=== PATIENT | male | born 1940 | race Caucasian/White ===

== ENCOUNTER 2016-06-20 18:41 | Inpatient (IN) ==
[2016-06-20 20:08] LABS: Basophils # (Auto) 0 K/mcL (0.0-0.3); Basophils % (Auto) 0.3 % (0.0-2.0); Eosinophils # (Auto) 0.1 K/mcL (0.0-0.7); Eosinophils % (Auto) 1.3 % (0.0-7.0); Lymphocytes % (Auto) 10.4 % (15.5-49.0); Mean Cell Volume 91.1 fL (80.0-100.0); Mean Corpuscular HGB Conc 33.3 g/dL (31.0-36.0); Mean Corpuscular Hemoglobin 30.3 pg (26.0-34.0); Monocytes # (Auto) 0.8 K/mcL (0.1-0.9); Platelet Count 210 K/mcL (140-440); RBC 5.28 M/mcL (4.50-5.90); Red Cell Distribution Width 13.5 % (11.5-14.5)
[2016-06-20 20:15] LABS: ALT/SGPT 19 U/l (0-40); Albumin 3.6 gm/dL (3.2-5.2); Albumin/Globulin Ratio 1.2 (1.0-2.3); Alkaline Phosphatase 62 U/L (39-117); Blood Urea Nitrogen 16 mg/dl (8-23)
[2016-06-20] MEDS ORDERED: KETOROLAC 30 MG/ML VIAL IV ONE (20:31)
[2016-06-20] MEDS ORDERED: 0.9 % SODIUM CHLORIDE 1,000 ML IV ONE (20:31)
[2016-06-20] MEDS ORDERED: PROCHLORPERAZINE 10 MG/2 ML VIAL IV ONE (20:31)
--- NOTE | 2016-06-20 20:48 | Emergency Department Note ---
General Adult HPI - General Chief complaint: Fever Stated complaint: Fever Time Seen by Provider: 06/20/16 18:53 Source: patient Mode of arrival: ambulatory Limitations: no limitations - History of Present Illness HPI Narrative: Patient presents, initial injury on the . His multiple documentations should been reviewed including 2 head CTs and MRI. Patient was evaluated by Dr. Persaud, additional laboratory testing yesterday. Also documentation of consult with neurosurgery. History presents, fever of 102 at home. Persistent and increasing malaise, decreasing appetite, nausea without emesis. Persistent productive cough although present at baseline. Headache with photophobia, persistent, felt mostly behind the eyes and some posterior right. Using Tylenol home, minimal benefit for headache. Minimal benefit for fever. Some chills but not to Reiger's. General myalgias as well. Patient is continued antibiotic as prescribed, Augmentin 875. - Related Data Home Medications Medication Instructions Recorded Confirmed Aspirin [Adult Low Dose Aspirin EC] 81 mg PO DAILY 06/13/16 06/14/16 Cartia Xt 1 tab PO DAILY 06/13/16 06/14/16 Doxazosin [Cardura] 2 mg PO DAILY 06/13/16 06/14/16 Irbesartan/Hydrochlorothiazide 1 each PO DAILY 06/13/16 06/14/16 [Irbesartan-Hctz 300-12.5 mg Tb] Simvastatin [Zocor] 2.5 mg PO HS 06/13/16 06/14/16 Testosterone 200 gm MC DAILY 06/13/16 06/14/16 Previous Rx's Medication Instructions Recorded Amoxicillin/Potassium Clav 875 mg PO Q12H #20 tablet 06/14/16 [Augmentin] Ondansetron HCl [Zofran ODT] 4 mg SL Q4-6HP PRN #14 tablet 06/19/16 Cefuroxime [Ceftin] 500 mg PO Q12 #20 tablet 06/20/16 Ibuprofen 800 mg PO TIDP PRN #30 tablet 06/20/16 oxyCODONE/APAP [Percocet 5-325 mg] 1 - 2 tab PO Q4H PRN #30 tablet 06/20/16 Allergies Allergy/AdvReac Type Severity Reaction Status Date / Time codeine AdvReac Headache Verified 06/20/16 18:45 Review of Systems All systems ED: reviewed and negative except as stated. Constitutional: Reports: fever, chills, weakness Eyes: Reports: eye pain, vision change Cardiovascular: Denies: chest pain, palpitations, dyspnea on exertion Respiratory: Reports: cough. Denies: dyspnea Gastrointestinal: Reports: nausea. Denies: abdominal pain, vomiting Past Medical History - Past Medical History Attestation: Yes: The following information was validated with the patient. Medical history: Reports: hypertension Surgical history ED: Reports: other (left arm amputation, right hand finger amputation TURP) Family history: Reports: no significant family history - Social History smoking status: Never smoker Alcohol use: Reports: Occasionally Drug use: Reports: none Physical Exam - General Limitations: no limitations General appearance: alert, in distress, other (rubrous face) - Head Head exam: other (resolving periorbital ecchymosis) - Eye Eye exam: Present: normal appearance - ENT ENT exam: normal exam, TM's normal bilaterally - Neck Neck exam: Present: normal inspection, full ROM. Absent: meningismus, lymphadenopathy - Chest Chest inspection: Present: normal inspection - Respiratory Respiratory exam: Present: respiratory distress, other (course breath sounds, nearly productive cough) - Cardiovascular Cardiovascular exam: Present: regular rate, normal rhythm. Absent: systolic murmur - Abdominal Exam Abdominal exam: Present: soft. Absent: tenderness - Extremities Exam Extremities exam: Present: normal inspection. Absent: pedal edema - Back Exam Back exam: Present: normal inspection - Neurological Exam Neurological exam: Present: alert, oriented X3 - Psychiatric Psychiatric exam: Present: anxious - Skin Skin exam: Present: warm, dry. Absent: rash Course - Reevaluation(s) Reevaluation #1: case discussed with Dr. Anguiano, neurosurgeon at [facility]. Did not feel fractures were likely to be high risk for infection intracranially. Stable and resolving bleeding pattern No clear reason for fever. No danger with LP is considered Time: 19:30 Reevaluation #2: LP completed; waiting results; Rocephin ordered atient's pain much improved with Toradol Time: 22:37 Vital Signs Temperature 100.2 F H 06/20/16 18:42 Pulse Rate 73 06/20/16 18:42 Respiratory Rate 20 06/20/16 18:42 Blood Pressure 165/87 06/20/16 18:42 Pulse Oximetry (%) 96 06/20/16 18:42 Temperature 100.2 F H 06/20/16 18:42 Pulse Rate 71 06/20/16 22:45 Respiratory Rate 21 06/20/16 19:16 Blood Pressure 99/41 06/20/16 22:31 Pulse Oximetry (%) 93 06/20/16 22:45 Medical Decision Making - Medical Records Medical records reviewed: Yes I reviewed the patient's medical records. - Lab Data Lab results reviewed: Yes I reviewed the patient's lab results. Result diagrams: 06/20/16 19:15 06/20/16 19:15 Lab Results 06/20/16 06/20/16 06/20/16 Range/Units 19:15 19:15 19:15 WBC 9.5 (4.5-11.0) K/mcL RBC 5.28 (4.50-5.90) M/mcL Hgb 16.0 (13.5-16.5) g/dL Hct 48.1 (41.0-55.0) % MCV 91.1 (80.0-100.0) fL MCH 30.3 (26.0-34.0) pg MCHC 33.3 (31.0-36.0) g/dL RDW 13.5 (11.5-14.5) % Plt Count 210 (140-440) K/mcL MPV 8.2 (7.4-10.4) fL Gran % 80.0 H (38.0-78.0) % Lymph % (Auto) 10.4 L (15.5-49.0) % [place] % (Auto) 8.0 (1.0-12.0) % Eos % (Auto) 1.3 (0.0-7.0) % Baso % (Auto) 0.3 (0.0-2.0) % Gran # 7.6 (1.8-8.0) K/mcL Lymph # 1.0 L (1.5-4.8) K/mcL [place] # 0.8 (0.1-0.9) K/mcL Eos # 0.1 (0.0-0.7) K/mcL Baso # 0 (0.0-0.3) K/mcL PT 13.4 (11.9-14.5) sec INR 1.0 (0.9-1.1) Sodium 132 L (133-145) mmol/L Potassium 3.8 (3.3-5.1) mmol/L Chloride 94 L (96-108) mmol/L Carbon Dioxide 22 (22-30) mmol/L Anion Gap 16.0 (8-16) BUN 16 (8-23) mg/dl Creatinine 1.4 H (0.7-1.2) mg/dl GFR Calculation 48 Glucose 107 H (70-105) mg/dL Calcium 8.4 L (8.6-10.4) mg/dl Total Bilirubin 0.8 (0.0-1.0) mg/dL AST 17 (0-37) U/l ALT 19 (0-40) U/l Alkaline Phosphatase 62 (39-117) U/L Total Protein 6.5 (5.9-8.4) gm/dL Albumin 3.6 (3.2-5.2) gm/dL Globulin 2.9 (2.2-3.7) gm/dL Albumin/Globulin Ratio 1.2 (1.0-2.3) CSF Source CSF Appearance CSF Color CSF RBC (0-1) /cumm CSF Diff Total Count CSF Total Nucleated Auto (0-5) /cumm CSF Neutrophils (0-6) % CSF Lymphocytes (40-80) % CSF Reactive Lymphs CSF Monocytes (15-45) % CSF Eosinophils % % CSF Basophils CSF Macrophages CSF Plasma Cells CSF Diff Comment CSF Glucose (45-75) mg/dL 06/20/16 Range/Units 21:43 WBC (4.5-11.0) K/mcL RBC (4.50-5.90) M/mcL Hgb (13.5-16.5) g/dL Hct (41.0-55.0) % MCV (80.0-100.0) fL MCH (26.0-34.0) pg MCHC (31.0-36.0) g/dL RDW (11.5-14.5) % Plt Count (140-440) K/mcL MPV (7.4-10.4) fL Gran % (38.0-78.0) % Lymph % (Auto) (15.5-49.0) % [place] % (Auto) (1.0-12.0) % Eos % (Auto) (0.0-7.0) % Baso % (Auto) (0.0-2.0) % Gran # (1.8-8.0) K/mcL Lymph # (1.5-4.8) K/mcL [place] # (0.1-0.9) K/mcL Eos # (0.0-0.7) K/mcL Baso # (0.0-0.3) K/mcL PT (11.9-14.5) sec INR (0.9-1.1) Sodium (133-145) mmol/L Potassium (3.3-5.1) mmol/L Chloride (96-108) mmol/L Carbon Dioxide (22-30) mmol/L Anion Gap (8-16) BUN (8-23) mg/dl Creatinine (0.7-1.2) mg/dl GFR Calculation Glucose (70-105) mg/dL Calcium (8.6-10.4) mg/dl Total Bilirubin (0.0-1.0) mg/dL AST (0-37) U/l ALT (0-40) U/l Alkaline Phosphatase (39-117) U/L Total Protein (5.9-8.4) gm/dL Albumin (3.2-5.2) gm/dL Globulin (2.2-3.7) gm/dL Albumin/Globulin Ratio (1.0-2.3) CSF Source Tube #4 CSF Appearance Cloudy CSF Color Xanthochromic/orange [place] [address] H (0-1) /cumm CSF Diff Total Count 100 CSF Total Nucleated Auto 224 H (0-5) /cumm CSF Neutrophils 74 H (0-6) % CSF Lymphocytes 8 L (40-80) % CSF Reactive Lymphs Not Reportable CSF Monocytes 17 (15-45) % CSF Eosinophils % 1 % CSF Basophils Not Reportable CSF Macrophages Not Reportable CSF Plasma Cells Not Reportable CSF Diff Comment Not Reportable CSF Glucose 45 (45-75) mg/dL - Radiology Data Radiology results reviewed: Yes I reviewed the patient's radiology results. no infiltrate on chest x-ray Disposition Clinical Impression: Fever and chills, CSF abnormal Mastoid fracture Qualifiers: Encounter type: subsequent encounter Summary: no other sources of infection identified. Discussed case with Dr. Anguiano, neurosurgery. Change in antibiotic coverage for greater CSF penetration concern given "PMNs in the CSF; oth blood and CSF cultures pending Dr. Reich contacted, willing for admit Disposition: Xfer As Inpt ([facility]) Condition: Fair Additional Instructions: see Dr. Mak on Thursday if possible Prescriptions: Cefuroxime [Ceftin] 500 mg PO Q12 #20 tablet Ibuprofen 800 mg PO TIDP PRN #30 tablet PRN Reason: pain, fever, headache oxyCODONE/APAP [Percocet 5-325 mg] 1 - 2 tab PO Q4H PRN #30 tablet PRN Reason: Pain Referrals: Woody Mak MD [Primary Care Provider] -
--- NOTE | 2016-06-20 21:42 | Procedure Note ---
Procedures - Lumbar Puncture Consent obtained: verbal consent, written consent Time out performed: Yes Patient position: upright Skin prep: Povidone-Iodine 1% Local anesthetic used: Lidocaine 1% Amount of anesthesia used (mLs): 5 Spinal needle gauge: 22G Interspace used: L3-L4 Fluid initially obtained: cloudy, bloody Complications: none Additional comments: with patient in sitting position LP performed x 2 medial attempts and 1 paramedian attempt. pt tolerated procedure well. no complicaitons noted. pt CSF bloody and cloudy without clearing.
[2016-06-20] MEDS ORDERED: cefTRIAXone 2 GM in DEXTROSE 5% IN WATER 50 ML IV ONE (21:55)
[2016-06-20] MEDS ORDERED: cefTRIAXone 2 GM VIAL ONE (22:05)
[2016-06-20 22:54] LABS: Appearance,CSF CLOUDY; Nucleated Cells,CSF 224 /cumm (0-5); Red Blood Cell,CSF 11710 /cumm (0-1)
[2016-06-20 22:58] LABS: Eosinophils,CSF 1 %; Lymphocytes,CSF 8 % (40-80); Monocytes,CSF 17 % (15-45); Neutrophils,CSF 74 % (0-6); Total Cell Ct,CSF 100
[2016-06-20 22:59] LABS: Glucose,CSF 45 mg/dL (45-75)
[2016-06-20] MEDS ORDERED: VANCOMYCIN 1,000 MG in 0.9 % SODIUM CHLORIDE 250 ML IV ONE (23:07)
[2016-06-20 23:15] LABS: Appearance,CSF CLOUDY; Nucleated Cells,CSF 203 /cumm (0-5); Red Blood Cell,CSF 14698 /cumm (0-1)
[2016-06-21] MEDS ORDERED: DEXAMETHASONE 10 MG/ML VIAL ONE ×2 (00:25→05:16)
[2016-06-21] MEDS: DEXAMETHASONE 10 MG/ML VIAL IV ONE ×2 (00:32→00:35)
--- NOTE | 2016-06-21 00:45 | Internal Med History&Physical ---
Medical - H&P: HPI Patient information: Note initiated : 06/21/16 at 12:41 am Service Date, if different from initiated Date: [] Patient: Cristofer Bowens a 75 y/o M admitted on for Fever. Chief Complaint: [] History of present illness: Mr. Bowens is a 75 year old male with h/o HTN presents to the ER with headache and fever The patient had a fall from a tractor on May, he had SAH and basilar fracture, concussion. He was evaluated here in the ER at that time, Phone consult by neurosurgery was done as per ER notes and plan was to monitor him. the patient had repeat CT heads subsequently as well as MRI head and MRA head. This showed resolving SAH, SDH, and non occulusive thrombus in the right jugular bulb, distal sigmoid sinus. The patient was not anticoagulated in light of his SDH, SAH. He also had a clot in his right middle ear. The patient presents today to the ER with complaints of headache on and off since the fall, but worse since yesterday, fever noted since yesterday. Patient was febrile in the ER, The patient was taking tylenol for his headache with some response. HE was also on anti microbial prophylaxis for meningitis due to his basilar fracture. In the ER given his h/o recent basilar fracture, patient case was discussed with neurosurgery, who reccommended CSF tap which was done today, this was a bloody tap, which showed elevated PMN, protein and borderline low glucose. Given fever, headache and recent basilar fracture, pt was admitted to the floor for management of acute meningitis. Pt is not sure when he last had his ppsv vac, but thinks he has had it in the last 10 yrs, has not had the pcv 13 vac Review of systems: CONSTITUTIONAL: No weight loss, present fever HEENT: Eyes: No visual loss, blurred vision, double vision or yellow sclerae. Ears, Nose, Throat: hearing loss left ear present, no sneezing, congestion, runny nose or sore throat. SKIN: No rash or itching. CARDIOVASCULAR: No chest pain, chest pressure or chest discomfort. No palpitations or edema. RESPIRATORY: No shortness of breath, cough or sputum. GASTROINTESTINAL: No diarrhea or constipation. No abdominal pain or blood in stools No Shirley. had some nausea and vomiting 2 d ays ago. GENITOURINARY: Denies Burning on urination. Blood in urine, or foul smelling urine NEUROLOGICAL: Present headache,No dizziness, syncope, paralysis, tremors, numbness or tingling in the extremities. No change in bowel or bladder control. MUSCULOSKELETAL: No muscle, back pain, joint pain or stiffness. HEMATOLOGIC: No bleeding or bruising. No enlarged nodes PSYCHIATRIC: No depression or anxiety. ENDOCRINOLOGIC: No reports of sweating, cold or heat intolerance. No polyuria or polydipsia. ALLERGIES: No hives, eczema or rhinitis. Skin: No rash, no jaundice, cyanosis or pallor. 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 Family history: reviewed and not pertinent Social history: non smoker no etoh no recreational substance Medical - H&P: Meds Home Medications Medication Instructions Recorded Confirmed Type Aspirin [Adult Low Dose Aspirin EC] 81 mg PO DAILY 06/13/16 06/14/16 History Cartia Xt 1 tab PO DAILY 06/13/16 06/14/16 History Doxazosin [Cardura] 2 mg PO DAILY 06/13/16 06/14/16 History Irbesartan/Hydrochlorothiazide 1 each PO DAILY 06/13/16 06/14/16 History [Irbesartan-Hctz 300-12.5 mg Tb] Simvastatin [Zocor] 2.5 mg PO HS 06/13/16 06/14/16 History Testosterone 200 gm MC DAILY 06/13/16 06/14/16 History Amoxicillin/Potassium Clav 875 mg PO Q12H #20 tablet 06/14/16 Rx [Augmentin] Ondansetron HCl [Zofran ODT] 4 mg SL Q4-6HP PRN #14 tablet 06/19/16 Rx Cefuroxime [Ceftin] 500 mg PO Q12 #20 tablet 06/20/16 Rx Ibuprofen 800 mg PO TIDP PRN #30 tablet 06/20/16 Rx oxyCODONE/APAP [Percocet 5-325 mg] 1 - 2 tab PO Q4H PRN #30 tablet 06/20/16 Rx Allergies Allergy/AdvReac Type Severity Reaction Status Date / Time codeine AdvReac Headache Verified 06/20/16 18:45 Medical - H&P: Exam - Constitutional Vitals: Temp Pulse Resp BP Pulse Ox 99.2 F 59 L 21 112/69 93 06/21/16 00:35 06/21/16 00:03 06/20/16 19:16 06/21/16 00:01 06/21/16 00:03 Exam: GENERAL: The patient is a well-developed, well-nourished in no apparent distress. Is alert and oriented x3. VITAL SIGNS: Reviewed and as noted elsewhere. HEENT: Head appears normocephalic and atraumatic. Extraocular muscles are intact. Pupils are equal, round, and reactive to light. Nares appeared normal. Mouth appears any without lesions. Mucous membranes are moist. left eye has some brusing around the eyes. Right TM has clot behing it. Unable to appreciate any clear discharge from the EAC or nares. NECK: Normal to inspection, Supple, No lymphadenopathy or thyromegaly. LUNGS: Air entry equal on both sides, no wheezing, crackles or rhonchi noted. No accessory muscles of respiration HEART: Regular rate and rhythm normal, S1 and S2 heard, no Gallop, S3 or Rub Noted, No Gross murmur heard. ABDOMEN: Soft, nontender, and nondistended. Positive bowel sounds. No hepatosplenomegaly was noted. EXTREMITIES: No cyanosis, clubbing, rash, lesions or edema. NEUROLOGIC: Cranial nerves II through XII are grossly intact. Motor and Sensory System Grossly Intact PSYCHIATRIC: Normal affect, Normal Mood. Appropriate Behavior. SKIN: No ulceration or wounds noted, No jaundice, No rash noted. Extremities: Absent left upper extremity, oksana lowe extremity with no edema. Medical - H&P: Reslt - Labs CBC & Chem 7: 06/20/16 19:15 06/20/16 19:15 Labs: Short CBC 06/20/16 Range/Units 19:15 WBC 9.5 (4.5-11.0) K/mcL Hgb 16.0 (13.5-16.5) g/dL Hct 48.1 (41.0-55.0) % Plt Count 210 (140-440) K/mcL BMP 06/20/16 19:15 Sodium 132 L Potassium 3.8 Chloride 94 L Carbon Dioxide 22 BUN 16 Creatinine 1.4 H Glucose 107 H Calcium 8.4 L Liver Function 06/20/16 Range/Units 19:15 Total Bilirubin 0.8 (0.0-1.0) mg/dL AST 17 (0-37) U/l ALT 19 (0-40) U/l Alkaline Phosphatase 62 (39-117) U/L Albumin 3.6 (3.2-5.2) gm/dL - Impressions MRI, mra, ct head reviewed csf fluid analsys reveiwed labs reviewed, cxr reviewed. Medical - H&P: A/P - Narrative A/P Narrative: Acute bacterial meningitis: Corrected CSF shows wbc of 203, glucose should be around 60 given his serum glucose of 107, but pt has glucose of 45, his protein is also midly elevated not sure if due to traumatic leak. Will place in droplet precautions IV vancomycin, IV rocephiun, amplicillin and Dexamethasone for now. d/c dexamethasone if no e/o pneumoccous, Give pcv 13 vac this visit. Sent vdrl, cryptococcus, hsv , low suspiction for hsv hence acyclovir not started. Right ear thrombus: seen by ENT non operative management suggested as per patient. SAH/ SDH : Resolved, xanthochromia in the csf due to IC bleed. HTN, monitor bp ,resume home meds if bp increases Renal failure, Creat 1.4, not sure about hsi baseline monitor for now. reassess in AM DVT scd for now Diet Regular Social History - Tobacco smoking status: Never smoker
[2016-06-21] MEDS ORDERED: ONDANSETRON 4 MG/2 ML VIAL IV PRN (01:44)
[2016-06-21] MEDS ORDERED: ACETAMINOPHEN 325 MG TABLET PO PRN (01:44)
[2016-06-21] MEDS ORDERED: MAGNESIUM HYDROXIDE 30 ML ORAL.SUSP PO PRN (01:44)
[2016-06-21] MEDS ORDERED: PNEUMOCCAL 13 VACC (ADULT) 0.5 ML SYRINGE IM ONE (01:44)
[2016-06-21] MEDS ORDERED: NALOXONE HCL 0.4 MG/ML VIAL IV PRN (01:44)
[2016-06-21] MEDS ORDERED: oxyCODONE HCL 5 MG TABLET PO PRN (01:44)
[2016-06-21] MEDS ORDERED: BISACODYL 10 MG SUPP.RECT PR PRN (01:44)
[2016-06-21] MEDS ORDERED: AMPICILLIN SODIUM 2 GM VIAL IV SCH (01:44)
[2016-06-21] MEDS: VANCOMYCIN 1,000 MG in 0.9 % SODIUM CHLORIDE 250 ML IV SCH ×3 (01:48→23:33)
[2016-06-21 05:06] LABS: Basophils # (Auto) 0 K/mcL (0.0-0.3); Basophils % (Auto) 0.4 % (0.0-2.0); Eosinophils # (Auto) 0 K/mcL (0.0-0.7); Eosinophils % (Auto) 0.2 % (0.0-7.0); Granulocytes % (Auto) 91.6 % (38.0-78.0); Lymphocytes # (Auto) 0.6 K/mcL (1.5-4.8); Lymphocytes % (Auto) 6.8 % (15.5-49.0); Mean Cell Volume 92.1 fL (80.0-100.0); Mean Corpuscular HGB Conc 32.7 g/dL (31.0-36.0); Mean Corpuscular Hemoglobin 30.1 pg (26.0-34.0); Monocytes # (Auto) 0.1 K/mcL (0.1-0.9); Platelet Count 201 K/mcL (140-440); RBC 5.06 M/mcL (4.50-5.90); Red Cell Distribution Width 13.5 % (11.5-14.5)
[2016-06-21 05:26] LABS: ALT/SGPT 17 U/l (0-40); Albumin 3.3 gm/dL (3.2-5.2); Albumin/Globulin Ratio 1.2 (1.0-2.3); Alkaline Phosphatase 57 U/L (39-117); Bilirubin,Direct < 0.2 mg/dL (0.0-0.3); Blood Urea Nitrogen 19 mg/dl (8-23); Gamma Glutamyl Transpeptidase 21 U/L (8-61); Magnesium 1.9 mg/dL (1.6-2.5); Uric Acid 8.7 mg/dL (2.5-8.0)
[2016-06-21] MEDS: 0.9 % SODIUM CHLORIDE 10 ML SYRINGE IV SCH ×3 (05:36→20:59)
[2016-06-21] MEDS: DEXAMETHASONE 10 MG/ML VIAL IV SCH ×4 (05:36→23:37)
[2016-06-21 06:44] LABS: Appearance,Urine CLEAR; Bacteria,Urine 0 /hpf (0); Bilirubin,Urine NEG (NEG); Color,Urine YELLOW; Glucose,Urine (UA) NEGATIVE (NEG); Leukocyte Esterase,Urine NEG /uL (NEG); Mucus,Urine FEW /hpf (0); Nitrate,Urine NEG (NEG); Protein,Urine NEG (NEG); Specific Gravity,Urine 1.014 (1.000-1.035); Urine Blood NEG mg/dL (<0.03); Urine RBC 2 /hpf (0-1); Urine Squamous Epithelial Cell 0 /hpf (0-4); Urine WBC < 1 /hpf (0-4); Urobilinogen,Urine NEG (NEG)
--- NOTE | 2016-06-21 08:13 | XRay Report ---
HISTORY: Reason for Exam:cough, fever, malaise FINDINGS: The lungs are clear. The heart, mediastinum, mayra and pleura are normal. A mild levoscoliotic curvature is present in the upper thoracic spine. There has been no significant change since 05/16/13. IMPRESSION: Normal chest. Interpreted and Authenticated by: Hi Chisholm 06/21/16
[2016-06-21] MEDS: AMPICILLIN SODIUM 2 GM in 0.9 % SODIUM CHLORIDE 100 ML IV SCH ×4 (08:25→23:32)
[2016-06-21] MEDS ORDERED: FAMOTIDINE 20 MG TABLET PO SCH (09:00)
[2016-06-21] MEDS: cefTRIAXone 2 GM in DEXTROSE 5% IN WATER 50 ML IV SCH ×2 (09:30→20:57)
[2016-06-21] MEDS: PANTOPRAZOLE 40 MG VIAL IV SCH (15:30)
[2016-06-21] MEDS ORDERED: [UNRECOGNIZED DRUG - OTHER] PO SCH (19:45)
[2016-06-21] MEDS ORDERED: IRBESARTAN PO SCH (19:45)
[2016-06-21] MEDS ORDERED: HYDROCHLOROTHIAZIDE PO SCH (19:45)
[2016-06-21] MEDS ORDERED: SIMVASTATIN 2.5 MG PO SCH (21:00)
[2016-06-22 05:57] LABS: Basophils # (Auto) 0 K/mcL (0.0-0.3); Basophils % (Auto) 0 % (0.0-2.0); Eosinophils # (Auto) 0 K/mcL (0.0-0.7); Eosinophils % (Auto) 0 % (0.0-7.0); Granulocytes % (Auto) 90.7 % (38.0-78.0); Lymphocytes # (Auto) 0.9 K/mcL (1.5-4.8); Lymphocytes % (Auto) 7.2 % (15.5-49.0); Mean Cell Volume 92.5 fL (80.0-100.0); Mean Corpuscular HGB Conc 32.9 g/dL (31.0-36.0); Mean Corpuscular Hemoglobin 30.4 pg (26.0-34.0); Monocytes # (Auto) 0.3 K/mcL (0.1-0.9); Monocytes % (Auto) 2.1 % (1.0-12.0); Platelet Count 230 K/mcL (140-440); RBC 5.06 M/mcL (4.50-5.90); Red Cell Distribution Width 13.6 % (11.5-14.5)
[2016-06-22] MEDS: 0.9 % SODIUM CHLORIDE 10 ML SYRINGE IV SCH ×4 (05:59→23:18)
[2016-06-22] MEDS: AMPICILLIN SODIUM 2 GM in 0.9 % SODIUM CHLORIDE 100 ML IV SCH ×4 (05:59→23:20)
[2016-06-22 06:12] LABS: ALT/SGPT 16 U/l (0-40); Albumin 3.2 gm/dL (3.2-5.2); Albumin/Globulin Ratio 1.1 (1.0-2.3); Alkaline Phosphatase 59 U/L (39-117); Bilirubin,Direct < 0.2 mg/dL (0.0-0.3); Blood Urea Nitrogen 27 mg/dl (8-23); Gamma Glutamyl Transpeptidase 23 U/L (8-61); Magnesium 2.1 mg/dL (1.6-2.5); Uric Acid 8.8 mg/dL (2.5-8.0)
[2016-06-22] MEDS: DEXAMETHASONE 10 MG/ML VIAL IV SCH ×4 (06:34→23:20)
[2016-06-22] MEDS: PANTOPRAZOLE 40 MG VIAL IV SCH (06:35)
[2016-06-22] MEDS: VITAMIN D3 1,000 UNIT TABLET PO SCH (08:02)
[2016-06-22] MEDS: MULTIVIT,THER IRON,CA,FA & MIN 1 TABLET PO SCH (08:03)
[2016-06-22] MEDS: HYDROCHLOROTHIAZIDE 12.5 MG CAPSULE PO SCH (08:03)
[2016-06-22] MEDS: FISH OIL 1,000 MG CAPSULE PO SCH (08:03)
[2016-06-22] MEDS: LOSARTAN 50 MG TABLET PO SCH (08:04)
[2016-06-22] MEDS: cefTRIAXone 2 GM in DEXTROSE 5% IN WATER 50 ML IV SCH ×2 (08:04→20:48)
[2016-06-22] MEDS: DOXAZOSIN 4 MG TABLET PO SCH (08:07)
[2016-06-22] MEDS ORDERED: ASPIRIN 81 MG TAB.CHEW PO SCH (09:00)
--- NOTE | 2016-06-22 09:26 | Internal Med Progress Note ---
Medical - PN: Subj Patient information: Note initiated : 06/22/16 at 9:25 am Service Date, if different from initiated Date: [] Patient: Cristofer Bowens a 75 y/o M admitted on 06/21/16 for Fever. Chief Complaint: [] Interval history: Mr. Bowens is a 75 year old male with h/o HTN presents to the ER with headache and fever, The patient had a fall from a tractor on May, he had SAH and basilar fracture, concussion. He was evaluated here in the ER at that time, Phone consult by neurosurgery was done as per ER notes and plan was to monitor him. the patient had repeat CT heads subsequently as well as MRI head and MRA head. This showed resolving SAH, SDH, and non occulusive thrombus in the right jugular bulb, distal sigmoid sinus. The patient was not anticoagulated in light of his SDH, SAH. He also had a clot in his right middle ear. The patient presents today to the ER with complaints of headache on and off since the fall, but worse since yesterday, fever noted since yesterday. Patient was febrile in the ER, The patient was taking tylenol for his headache with some response. HE was also on anti microbial prophylaxis for meningitis due to his basilar fracture. In the ER given his h/o recent basilar fracture, patient case was discussed with neurosurgery, who recommended CSF tap which was done today, this was a bloody tap, which showed elevated PMN, protein and borderline low glucose. Given fever, headache and recent basilar fracture, pt was admitted to the floor for management of acute meningitis. 06/22 Patient seen examined, no acute overnight events, he did not sleep very well, but otherwise doing well, no fever, only reports mild headache, feels good otherwise, good appetite. No vision or hearing changes. Discussed with him his lab results, microbiology negative so far, rest of the labs ok, mild rise if wbc likely from dexamethasone. OK to d/c isolation as he has been > 24 hrs on abx Pertinent ROS: Denies dizziness, headache is very mild Denies chest pain, palpitations Denies cough or shortness of breath Denies abdominal pain, nausea or vomiting. - Constitutional Vitals: Vital Signs Temp Pulse Resp BP Pulse Ox 97.8 F 82 16 157/63 97 06/22/16 04:00 06/22/16 04:00 06/22/16 04:00 06/22/16 04:00 06/22/16 04:00 Period Temp Pulse Resp BP Sys/Stout Pulse Ox Last 24 Hr 97.3 F-98.6 F 78-82 16-20 136-168/54-76 93-97 Intake and Output 06/21/16 06/22/16 06/22/16 21:59 05:59 13:59 Intake Total 1860 / 1860 750 / 750 62 / 62 Balance 1860 / 1860 750 / 750 62 / 62 Weight 224 lb 11.2 oz Intake & Output: Intake & Output 06/21/16 06/22/16 06/22/16 21:59 05:59 13:59 Intake Total 1860 / 1860 750 / 750 62 / 62 Balance 1860 / 1860 750 / 750 62 / 62 Weight 224 lb 11.2 oz Intake: IV 500 / 500 350 / 350 62 / 62 Ampicillin 2 gm In Sodium 200 / 200 100 / 100 62 / 62 Chloride 0.9% 100 ml @ 100 mls/hr IV Q6H [facility] Rx# :[id number] Vancomycin 1,000 mg In 250 / 250 250 / 250 Sodium Chloride 0.9% 250 ml @ 250 mls/hr IV Q12H [facility] Rx#:[id number] Rocephin 2 gm In Dextrose 50 / 50 5% in Water 50 ml @ 100 mls/hr IV Q12H [facility] Rx#: [id number] Oral 1360 / 1360 400 / 400 Other: Meal Dinner Nourishment/Supplement Percent of Meal Consumed 100% 100% Feeding Ability Assist with Tray Set Up # Voids 1 Exam: Constitutional; Afebrile, cooperative, alert, not in distress. Eyes- No icterus, , No periorbital swelling Ears- Ext ear normal, hearing mildly decreased to conversation. Neck- Midline trachea, supple Respiratory system: Air Entry equal on both sides, No crackles or wheezing, no rhonchi. CVS- Rate rhythm regular, S1,S2 heard, no gallop, no rub. Abdomen- Soft nontender abdomen, no organomegaly, no tenderness, no guarding or rigidity, APPRAISER AUDITOR- AOOx3, moving all extremities, no gross focal deficit noted. absent left upper extremity Medical - PN: Obj Da - Labs CBC & Chem 7: 06/22/16 05:00 06/22/16 05:00 Labs: Abnormal Lab Results 06/22/16 06/22/16 06/21/16 05:00 05:00 05:09 WBC 12.8 H Gran % 90.7 H Lymph % (Auto) 7.2 L Gran # 11.6 H Lymph # 0.9 L Sodium Chloride Carbon Dioxide 15 L Anion Gap 17.0 H BUN 27 H Creatinine 1.4 H Glucose 163 H Uric Acid 8.8 H Calcium 8.3 L Phosphorus 2.5 L Lactate Dehydrogenase 289 H Urine RBC 2 H 06/21/16 06/21/16 03:35 03:35 WBC Gran % 91.6 H Lymph % (Auto) 6.8 L Gran # Lymph # 0.6 L Sodium 132 L Chloride 95 L Carbon Dioxide 21 L Anion Gap BUN Creatinine 1.5 H Glucose 137 H Uric Acid 8.7 H Calcium 8.1 L Phosphorus 2.1 L Lactate Dehydrogenase Urine RBC Meds: Medications Acetaminophen (Tylenol) 650 mg PO Q6HP PRN PRN Reason: PAIN/FEVER > 101 Bisacodyl (Dulcolax) 10 mg [place] Q2-3DAYS PRN PRN Reason: Constipation Dexamethasone (Decadron) 15 mg IV Q6 [facility] Stop: 06/25/16 05:59 Last Admin: 06/22/16 06:34 Dose: 15 mg Doxazosin Mesylate (Cardura) 2 mg PO DAILY [facility] Last Admin: 06/22/16 08:07 Dose: 2 mg Fish Oil (Fish Oil) 2,000 mg PO DAILY [facility] Last Admin: 06/22/16 08:03 Dose: 2,000 mg Hydrochlorothiazide (Oretic) 12.5 mg PO DAILY [facility] Last Admin: 06/22/16 08:03 Dose: 12.5 mg Vancomycin HCl 1,000 mg/ (Sodium Chloride) 250 mls @ 250 mls/hr IV Q12H [facility] Last Infusion: 06/22/16 01:45 Dose: Infused Ceftriaxone Sodium 2 gm/ (Dextrose) 50 mls @ 100 mls/hr IV Q12H [facility] Last Admin: 06/22/16 08:04 Dose: 100 mls/hr Ampicillin Sodium 2 gm/ Sodium (Chloride) 100 mls @ 100 mls/hr IV Q6H [facility] Last Infusion: 06/22/16 06:36 Dose: 100 mls/hr Iron Carb/Multivit/Ware Dresser/Folic Acid (Multivitamin W/Minerals) 1 tab PO DAILY [facility] Last Admin: 06/22/16 08:03 Dose: 1 tab Losartan Potassium (Cozaar) 100 mg PO DAILY [facility] Last Admin: 06/22/16 08:04 Dose: 100 mg Magnesium Hydroxide (Milk Of Magnesia) 30 ml PO DAILYP PRN PRN Reason: Constipation Naloxone HCl (Narcan) 0.1 mg IV Q2MIN PRN PRN Reason: Opiate Reversal Non-Formulary Medication (Cartia Xt) 1 tab PO DAILY [facility] Ondansetron HCl (Zofran) 4 mg IV Q6HP PRN PRN Reason: Nausea And Vomiting Oxycodone HCl (Roxicodone) 5 mg PO Q4HP PRN PRN Reason: Pain Last Admin: 06/21/16 09:44 Dose: 5 mg Pantoprazole Sodium (Protonix) 40 mg IV QAMAC [facility] Last Admin: 06/22/16 06:35 Dose: 40 mg Simvastatin (Zocor) 2.5 mg PO HS [facility] Sodium Chloride (Saline Flush) 10 ml IV Q8 [facility] Last Admin: 06/22/16 06:36 Dose: 10 ml Vitamin D (Vitamin D3) 1,000 unit PO DAILY [facility] Last Admin: 06/22/16 08:02 Dose: 1,000 unit Medical - PN: A/P - Time Spent With Patient Total time spent is greater than 50% in coordination of care (as documented) at patient's floor/unit and/or counseling patient: - Narrative A/P Narrative: Acute bacterial meningitis: susepcted, On vanco, rocephin, ampicillin, cultures negative so far, clinically improving. continue dexa, and abx till 72 hrs, after which switch to orals. Right ear thrombus: seen by ENT non operative management suggested as per patient. SAH/ SDH : Resolved, xanthochromia in the csf due to IC bleed. HTN, monitor bp ,resume home meds Renal failure, Creat 1.4, stable, IV fluids for now. DVT scd for now Diet Regular Medical - PN: Qual - VTE Deep Vein Thrombosis/Pulmonary Embolism Present on Admission: No
[2016-06-22] MEDS: 0.45 % SODIUM CHLORIDE 1,000 ML IV SCH (10:38)
[2016-06-22] MEDS: VANCOMYCIN 1,000 MG in 0.9 % SODIUM CHLORIDE 250 ML IV SCH (12:30)
[2016-06-22] MEDS: DILTIAZEM 120 MG CAP.XL.24H PO SCH (12:34)
[2016-06-22] MEDS ORDERED: SIMVASTATIN 10 MG TABLET PO SCH (21:00)
[2016-06-23] MEDS: VANCOMYCIN 1,000 MG in 0.9 % SODIUM CHLORIDE 250 ML IV SCH (00:26)
[2016-06-23] MEDS: 0.45 % SODIUM CHLORIDE 1,000 ML IV SCH (02:47)
[2016-06-23] MEDS: AMPICILLIN SODIUM 2 GM in 0.9 % SODIUM CHLORIDE 100 ML IV SCH (05:02)
[2016-06-23] MEDS: 0.9 % SODIUM CHLORIDE 10 ML SYRINGE IV SCH (05:03)
[2016-06-23] MEDS: DEXAMETHASONE 10 MG/ML VIAL IV SCH ×2 (05:14→13:01)
[2016-06-23 05:45] LABS: Basophils # (Auto) 0 K/mcL (0.0-0.3); Basophils % (Auto) 0 % (0.0-2.0); Eosinophils # (Auto) 0 K/mcL (0.0-0.7); Eosinophils % (Auto) 0 % (0.0-7.0); Granulocytes % (Auto) 92.9 % (38.0-78.0); Lymphocytes # (Auto) 0.8 K/mcL (1.5-4.8); Lymphocytes % (Auto) 5.3 % (15.5-49.0); Mean Cell Volume 92.7 fL (80.0-100.0); Mean Corpuscular HGB Conc 33.1 g/dL (31.0-36.0); Mean Corpuscular Hemoglobin 30.7 pg (26.0-34.0); Monocytes # (Auto) 0.3 K/mcL (0.1-0.9); Monocytes % (Auto) 1.8 % (1.0-12.0); Platelet Count 240 K/mcL (140-440); RBC 4.83 M/mcL (4.50-5.90)
[2016-06-23 06:23] LABS: ALT/SGPT 18 U/l (0-40); Albumin 3.3 gm/dL (3.2-5.2); Albumin/Globulin Ratio 1.3 (1.0-2.3); Alkaline Phosphatase 54 U/L (39-117); Bilirubin,Direct < 0.2 mg/dL (0.0-0.3); Blood Urea Nitrogen 29 mg/dl (8-23); Gamma Glutamyl Transpeptidase 22 U/L (8-61); Magnesium 2.1 mg/dL (1.6-2.5); Uric Acid 7.4 mg/dL (2.5-8.0)
[2016-06-23] MEDS: PANTOPRAZOLE 40 MG VIAL IV SCH (06:38)
[2016-06-23] MEDS: HYDROCHLOROTHIAZIDE 12.5 MG CAPSULE PO SCH (08:48)
[2016-06-23] MEDS: LOSARTAN 50 MG TABLET PO SCH (08:48)
[2016-06-23] MEDS: VITAMIN D3 1,000 UNIT TABLET PO SCH (08:48)
[2016-06-23] MEDS: DILTIAZEM 120 MG CAP.XL.24H PO SCH (08:48)
[2016-06-23] MEDS: MULTIVIT,THER IRON,CA,FA & MIN 1 TABLET PO SCH (08:48)
[2016-06-23] MEDS: FISH OIL 1,000 MG CAPSULE PO SCH (08:48)
[2016-06-23] MEDS: cefTRIAXone 2 GM in DEXTROSE 5% IN WATER 50 ML IV SCH (08:49)
[2016-06-23] MEDS: DOXAZOSIN 4 MG TABLET PO SCH (08:49)
--- NOTE | 2016-06-23 11:22 | Discharge Summary ---
Medical - DS: Prov Patient information: Note initiated : 06/23/16 at 11:22 am Service Date, if different from initiated Date: [] Patient: Cristofer Bowens 75 y/o M admitted on 06/21/16 for Fever. Chief Complaint: [] Date of admission: 06/21/16 01:20 Discharge date: 06/23/16 Primary care physician: [f_Reg Prim Care Provider] Medical - DS: Meds - Discharge Medications Prescriptions: Cefdinir 300 mg PO BID #20 capsule oxyCODONE/APAP [Percocet 5-325 mg] 1 - 2 tab PO Q4H PRN #30 tablet PRN Reason: Pain Active and Home Medications: Home Medications Aspirin [Adult Low Dose Aspirin EC] 81 mg PO DAILY 06/13/16 [History Confirmed 06/21/16 Last Taken 06/20/16] Diltiazem HCl [Cartia Xt] 120 mg PO DAILY 06/13/16 [History Confirmed 06/22/16 Last Taken Unknown] Doxazosin [Cardura] 2 mg PO DAILY 06/13/16 [History Confirmed 06/21/16 Last Taken 06/20/16] Irbesartan/Hydrochlorothiazide [Irbesartan-Hctz 300-12.5 mg Tb] 1 each PO DAILY 06/13/16 [History Confirmed 06/21/16 Last Taken 06/20/16] Simvastatin [Zocor] 2.5 mg PO HS 06/13/16 [History Confirmed 06/21/16 Last Taken 06/20/16] Testosterone 200 gm TOPICAL PRN PRN 06/13/16 [History Confirmed 06/21/16 Last Taken Unknown] Cefuroxime [Ceftin] 500 mg PO Q12 #20 tablet 06/20/16 [Rx Last Taken Unknown] oxyCODONE/APAP [Percocet 5-325 mg] 1 - 2 tab PO Q4H PRN #30 tablet 06/20/16 [Rx Last Taken Unknown] Baby Vitamin D3 1,000 mg PO DAILY 06/21/16 [History Confirmed 06/21/16 Last Taken 06/20/16] Daily Multivitamin Capsule 1 cap PO DAILY 06/21/16 [History Confirmed 06/21/16 Last Taken 06/20/16] Fish Oil 1,000 mg Softgel 2 capsule PO DAILY 06/21/16 [History Confirmed Last Taken 06/20/16] Medical - DS: Hosp Hospital course: Mr. Bowens is a 75 year old male who has h/o HTN who presented to the ER on 13 june after head injury after mech fall. Pt developed basilar skull fracture, as well as hematoma in right middle ear, he had sdh and SAH, he was being monitored as outpatient in [facility] with ER and Dr Buckley Neurosurgeon in [facility]. The patient developed fever and headache and there was concern for meningitis and was therefore admitted for further management. pt csf was positive for leucocytosis, borderline glucose and mildly elevated protein. Given his high risk of meningitis, he was treated with vancomycin, ampicillin and Rocephin, and dexamethasone however his microbiology was negative at 3 days. The patient is clinically much better, has not had any fevers over that last 3 days. It is likely that the patients CSF findings are confounded by the SAH and SDH which can both lead to leucocytosis, infection is very unlikely given neg cultures. The patient will continue oral third gen antibiotic given h/o skull fracture for additional 10 days. The rest of the patients stay in the hospital was uneventful. Advised to stay off ASA till cleared by Neurosurgery. Discharge diagnosis: Meningitis. - Time Spent with Patient Total time spent providing and/or coordinating discharge services: Greater than 30 minutes Medical - DS: Exam - Constitutional Vitals: Vital Signs Temp Pulse Resp BP Pulse Ox 06/23/16 06:46 98.7 F 65 18 145/68 94 06/23/16 04:00 98.9 F 16 143/52 95 06/23/16 00:00 98.4 F 69 18 148/61 95 06/22/16 20:00 98.2 F 67 18 174/75 96 06/22/16 16:00 99.0 F 18 168/88 96 06/22/16 12:00 98.7 F 18 168/88 97 Intake and Output 06/22/16 06/23/16 06/23/16 21:59 05:59 13:59 Intake Total 1540 / 1540 650 / 650 1050 / 1050 Balance 1540 / 1540 650 / 650 1050 / 1050 Intake: IV 400 / 400 450 / 450 1050 / 1050 Sodium Chloride 0.45% 1, 1000 / 1000 000 ml @ 84 mls/hr IV . [id number] [facility] Rx#:[id number] Ampicillin 2 gm In Sodium 100 / 100 200 / 200 Chloride 0.9% 100 ml @ 100 mls/hr IV Q6H [facility] Rx# :[id number] Vancomycin 1,000 mg In 250 / 250 250 / 250 Sodium Chloride 0.9% 250 ml @ 250 mls/hr IV Q12H [facility] Rx#:[id number] Rocephin 2 gm In Dextrose 50 / 50 50 / 50 5% in Water 50 ml @ 100 mls/hr IV Q12H [facility] Rx#: [id number] Oral 1140 / 1140 200 / 200 Other: Meal Dinner Percent of Meal Consumed 100% Feeding Ability Independent # Voids 2 4 Weight 228 lb Additional comments: Constitutional; Afebrile, cooperative, alert, not in distress. Eyes- No icterus, , No periorbital swelling Ears- Ext ear normal, hearing normal to conversation. Neck- Midline trachea, supple Respiratory system: Air Entry equal on both sides, No crackles or wheezing, no rhonchi. CVS- Rate rhythm regular, S1,S2 heard, no gallop, no rub. Abdomen- Soft nontender abdomen, no organomegaly, no tenderness, no guarding or rigidity, AQUATIC PHYSIOTHERAPIST- AOOx3, moving all extremities, no gross focal deficit noted. Medical - DS: Data Labs on day of discharge: Labs from last 24 hours 06/23/16 06/23/16 06/22/16 04:55 04:55 11:00 WBC 14.3 H RBC 4.83 Hgb 14.8 Hct 44.8 MCV 92.7 MCH 30.7 MCHC 33.1 RDW 14.0 Plt Count 240 MPV 8.4 Gran % 92.9 H Lymph % (Auto) 5.3 L [place] % (Auto) 1.8 Eos % (Auto) 0 Baso % (Auto) 0 Gran # 13.3 H Lymph # 0.8 L [place] # 0.3 Eos # 0 Baso # 0 Sodium 134 Potassium 3.8 Chloride 99 Carbon Dioxide 21 L Anion Gap 14.0 BUN 29 H Creatinine 1.4 H GFR Calculation 48 Glucose 131 H Uric Acid 7.4 Calcium 8.1 L Phosphorus 3.3 Magnesium 2.1 Total Bilirubin 0.4 Direct Bilirubin < 0.2 GGT 22 AST 17 ALT 18 Alkaline Phosphatase 54 Lactate Dehydrogenase 211 Total Protein 5.9 Albumin 3.3 Globulin 2.6 Albumin/Globulin Ratio 1.3 Triglycerides 94 Vancomycin Trough 13.5 Medical - DS: A/P - Patient/Caregiver Discharge Instructions Activity: increase activity as tolerated Diet: Low Sodium (2gm) Additional Instructions: Follow up with PCP in 7 days Follow up with Dr Yung (ENT) as per previous schedule Follow up with Neurosurgery in 7 -10 days (Dr Grijalva) to discuss further plan of care with regards to SAH/ SDH and resumption of aspirin therapy. Go to the ER if worsening condition, recurrent fever or any significant change. Take antibiotics for additional 10 days. No ASA till ok by neurosurgery No heavy lifting or driving till ok by Neurosurgery. Prescriptions: Cefuroxime [Ceftin] 500 mg PO Q12 #20 tablet oxyCODONE/APAP [Percocet 5-325 mg] 1 - 2 tab PO Q4H PRN #30 tablet PRN Reason: Pain - Follow up Plan Follow up with: Woody Mak MD [Primary Care Provider] - Disposition: Home, Self-Care Prognosis: Fair Rehab Potential: Fair I certify that the patient requires SNF services: No Overall status at discharge: patient is progressing back to baseline Medical - DS: Qual - VTE Deep Vein Thrombosis/Pulmonary Embolism Present on Admission: No
[2016-06-26 11:26] LABS: HSV DNA NOT DETECTED
== END 2016-06-23 12:45 | disposition home or self-care (01) ==
LOC: ED 18:41 → ICU 06-21 01:20
PROVIDERS: ADMIT Internal Medicine; ATTEND Internal Medicine